=== PATIENT | female | born 1970 | race Caucasian/White ===

== ENCOUNTER 2022-02-13 08:21 | Observation (INO) | payer SELFPAY ==
[2022-02-13] VITALS (13 sets, daily range): BP systolic 110–140; BP diastolic 63–100; PULSE 61–87; RESP 14–20; TEMP 35.6–36.7; O2SAT 95–99; BMI 26.9; BMI 26.7
--- NOTE | 2022-02-13 08:42 | CT_ITS ---
STUDY: CT HEAD STROKE PROTOCOL W/O CONTRAST INJECTION REASON FOR EXAM: Female, 51 years old. Neuro deficit, acute, stroke suspected RADIATION DOSAGE (If Supplied By Facility): CTDIvol = ( 47.06 ) mGy, DLP = ( 37.39 ) mGycm TECHNIQUE: Transaxial CT imaging of the brain was performed without administration of intravenous contrast material. Individualized dose optimization techniques were used for this CT. COMPARISON: No relevant priors. FINDINGS: Normal soft tissue structures. Normal calvarium. Normal size ventricles and extra-axial spaces for the patient''s age. Normal white matter tracts of the cerebral hemispheres. Normal basal ganglia and thalami. Normal brainstem. Normal cerebellum. There is no intracranial hemorrhage. There are no findings of an acute ischemic infarction. Mild degree of mucosal thickening of the left maxillary sinus. ASPECT score: 10 CT/STROKE Brain/Head without Cont IMPRESSION: Normal unenhanced CT scan of the brain. N.B. : The above Results were Read Back by Sigifredo Solis MD to Selam Batista and understanding confirmed on 02/13/2022 09:17:28 (ET). Electronically Signed: Sigifredo Solis MD at 9:18 EDT ,
--- NOTE | 2022-02-13 08:42 | RAD_ITS ---
STUDY: X-RAY CHEST REASON FOR EXAM: Female, 51 years old. Neuro deficit, acute, stroke suspected TECHNIQUE: Single AP portable view of the chest. COMPARISON: None. FINDINGS: EKG electrodes are seen. The lungs are clear and expanded. There is no demonstrated pleural abnormality. Normal size heart. Normal mediastinum and adrián. Normal visualized pulmonary arteries. Normal visualized aortic arch and descending thoracic aorta. Normal visualized thoracic spine. Normal visualized ribs, clavicles, and shoulders. There is no demonstrated abnormality of the visualized soft tissue structures of the upper abdomen. RAD/Chest 1 View IMPRESSION: Normal x-ray examination of the chest. Electronically Signed: Sigifredo Solis MD at 10:02 EDT ,
--- NOTE | 2022-02-13 08:43 | CT_ITS ---
STUDY: CTA HEAD AND NECK WITH CONTRAST REASON FOR EXAM: Female, 51 years old. Neuro deficit, acute, stroke suspected RADIATION DOSAGE (If Supplied By Facility): CTDIvol = ( 18.19 ) mGy, DLP = ( 881.01 ) mGycm TECHNIQUE: CT angiography was performed with a multi-detector CT scanner. Data acquisition was obtained from the skull base through the vertex following intravenous administration of IV 100mL Isovue-370. MIP images were reconstructed from the axial data set. Post-processing of the angiographic images was performed, with multiplanar reformation and 3D reconstruction. Individualized dose optimization techniques were used for this CT. COMPARISON: No relevant priors. FINDINGS: Normal bilateral petrous carotid arteries. Normal right cavernous carotid artery with a normal supraclinoid bifurcation. Normal left cavernous carotid artery with a normal supraclinoid bifurcation. Normal right A1 segments of the anterior cerebral artery. Normal left A1 segments of the anterior cerebral artery. Normal intact anterior communicating artery (ACOM). Normal bilateral A2 segments of the anterior cerebral arteries. Normal right M1 and M2 segments of the middle cerebral arteries, with a normal M1 bifurcation. Normal left M1 and M2 segments of the middle cerebral arteries, with a normal M1 bifurcation. Normal right posterior communicating artery (PCOM). Normal left posterior communicating artery (PCOM). Normal bilateral vertebral arteries. Normal basilar artery with a normal basilar bifurcation. The visualized bilateral superior cerebellar (SCA) arteries are normal. Normal bilateral P1, P2 and visualized P3 segments of the posterior cerebral arteries. There is no demonstrated aneurysm of the [place]. There is no demonstrated abnormality of the visualized brain. Partial opacification of the left maxillary sinus. AORTIC ARCH: There is atherosclerotic calcific plaque formation of the aortic arch and great vessels arising from the aortic arch, without a hemodynamically significant stenosis. There is a normal origin of the brachiocephalic, left common carotid, and left subclavian arteries. RIGHT CAROTID ARTERIES: Normal right common carotid artery (CCA). Normal right common carotid bulb. Normal origin of the right internal carotid (ICA) artery without a hemodynamically significant stenosis. Normal visualized cervical portion of the right internal carotid artery. Normal origin of the right external carotid artery (ECA). LEFT CAROTID ARTERIES: Normal left common carotid artery (CCA). Normal left common carotid bulb. Normal origin of the left internal carotid (ICA) artery without a hemodynamically significant stenosis. Normal visualized cervical portion of the left internal carotid artery. Normal origin of the left external carotid artery (ECA). VERTEBRAL ARTERIES: There is enhancement within the bilateral vertebral arteries with a small left vertebral artery, and a dominant right vertebral artery. CT/STROKE CTA Head AND Neck W/Con IMPRESSION: Normal CTA Head and neck with contrast. N.B. : The above Results were Read Back by Sigifredo Solis MD to Selam Batista and understanding confirmed on 02/13/2022 09:14:51 (ET). Electronically Signed: Sigifredo Solis MD at 9:16 EDT ,
--- NOTE | 2022-02-13 08:43 | ED.VIS.STROK ---
HPI History of Present Illness Chief Complaint: Stroke Alert Detail of Chief Complaint: Right arm numbness and tingling and weakness Informant: patient Narrative Narrative: Patient presents the emergency department with right arm numbness and tingling and weakness. Patient states she woke up at 3 AM and thought maybe her arm had fallen asleep. Patient was in bed. She denied any compression of any of the nerves in her armpit. She woke up this morning and continued to experience numbness in her hand and could not really feel her fingers. She had a hard time picking things up and the arm felt weak. She denies any speech difficulty or vision changes. She is never had symptoms like this before. Patient also noticed a pain that radiates from her armpit down to her thumb at times. Prior similar symptoms: No PFSH PFSH Medical History no medical history Home Medications NK 02/13/22 [History Last Taken Unknown] Allergy/AdvReac Type Severity Reaction Status Date / Time azithromycin Allergy Anaphylaxis Verified 02/13/22 08:23 Family History no significant family his Surgical History no surgical history Social History Smoking Status: Current every day smoker tobacco type: cigarettes ROS ROS ED Constitutional Constitutional ED: Reports systems reviewed and no addt'l complaints, except as documented; Denies body ache(s), change in weight or chills Eyes Eyes: Denies acute decrease in peripheral vision, change in vision, double vision or loss of vision ENT ENT ED: Reports none; Denies ear pain, lip swelling, loss taste/smell, neck pain, otalgia or sore throat Cardiovascular Cardiovascular: Reports none; Denies abdominal pain, chest pain with activity, leg edema, lightheadedness, palpitations, rapid heart rate or syncope Respiratory/Chest Respiratory/Chest: Reports none; Denies change in mental status, dry cough, dyspnea, hemoptysis, shortness of breath at rest or shortness of breath with exertion Gastrointestinal Gastrointestinal: Reports none; Denies abdominal pain, change in stool character, diarrhea, hematemesis, hematochezia, melena, rectal bleeding or vomiting Genitourinary Genitourinary ED: Reports none; Denies abdominal discomfort, anuria, dysuria, genital pain or polyuria Musculoskeletal Musculoskeletal: Reports none; Denies arthralgias, back pain, difficulty walking, extremity pain, muscle weakness or myalgias Integumentary Reports none; Denies abscess or rash Neurologic Neurologic: Reports none, focal weakness, paresthesias and weakness; Denies abnormal gait, confusion, frequent falls, headache(s), loss of vision, numbness, radicular pain or vertigo Psychiatric Psychiatric: Reports systems reviewed and no addt'l complaints, except as documented and none; Denies behavioral changes, confusion, difficulty concentrating, hallucinations, suicidal ideation, tactile hallucinations or visual hallucinations Endocrine Endocrinology: Denies none, cold intolerance, excessive sweating, fatigue or heat intolerance Hematologic/Lymphatic Hematologic/Lymphatic: Reports none; Denies anemia, easy bleeding or easy bruising Allergic/Immunologic Allergic/Immunologic ED: Denies as per HPI, none, lip swelling, mouth swelling, throat swelling, tongue swelling or hives EXAM Physical Exam Const Vital Signs: 02/13/22 08:25 02/13/22 08:42 02/13/22 08:42 Temperature 96.1 F L Temperature Source Temporal Pulse Rate 72 72 Respiratory Rate 17 16 Blood Pressure 140/86 H 140/86 H Blood Pressure Mean 104 104 Pulse Ox 99 99 Oxygen Delivery Method Room Air Room Air Room Air 02/13/22 08:42 02/13/22 09:10 02/13/22 09:30 Temperature Temperature Source Pulse Rate 72 66 87 Respiratory Rate 16 16 16 Blood Pressure 140/86 H 137/63 H 139/91 H Blood Pressure Mean 104 87 107 Pulse Ox 99 99 96 Oxygen Delivery Method Room Air Room Air Room Air 02/13/22 10:00 Temperature Temperature Source Pulse Rate 61 Respiratory Rate 16 Blood Pressure 132/88 H Blood Pressure Mean 102 Pulse Ox 98 Oxygen Delivery Method Room Air Positive well nourished and well developed General Appearance ED: well developed and NAD HEENT Reports TM's clear and moist mucous membranes normocephalic and atraumatic; Negative for trauma or tenderness Tympanic Membrane ED: Yes TM's clear Eyes PERRL and EOMs intact bilaterally General Eye ED: Negative for pale conjunctiva or scleral icterus Neck no lymphadenopathy, supple and no JVD General: Negative for tenderness Chest Wall inspection of chest normal and palpation of chest normal Chest: Negative for tenderness Resp normal respiratory effort and clear to auscultation bilaterally Effort and Inspection: Negative for respiratory distress or pain with movement Auscultation: Negative for rhonchi, wheezes or diminished lung sounds Cardio regular rate, regular rhythm, S1 normal heart sound, S2 normal heart sound and no murmurs Peripheral Pulses: pulses 2+ throughout GI normal to inspection, nondistended, normoactive bowel sounds, soft to palpation, non-tender, non-distended and no masses Back/Spine no CVA tenderness and no thoracic nor lumbar tenderness Extremity normal to inspection General Extremety ED: Negative for edema General Extremity: Negative for edema Neuro oriented x3, CN's II-XII intact bilaterally, no sensory deficits noted and gait normal Neuro Narrative: Patient with no focal deficits noted. NIH stroke scale was a 1 for some decree sensation to the right arm. Sensorium / Orientation: awake, alert, oriented to person, oriented to place and oriented to time Motor Exam: strength 5/5 throughout and strength abnormal Psych mental status grossly normal Skin no rashes or lesions noted and no wounds MDM MDM MDM Narrative Medical decision making narrative: On her arrival patient had a stroke team called as she has had symptoms for less than 24 hours. Patient is out of the thrombolytic window as symptoms almost 6 hours. Patient was evaluated by stroke neurologist and no tPA recommended and I am in agreement with this. Lab work-up was unremarkable. Patient CT of the brain and CTA of head and neck were all unremarkable. Patient initially stated that her paresthesias resolved when speaking with the stroke neurologist but then intermittently she would have symptoms that would recur in the right arm. Case discussed with hospitalist will evaluate patient for admission for MRI and completion of stroke work-up. In the differential would be a peripheral neuropathy as well. Lab Data Attestation: I reviewed the patient's lab results. Labs: Laboratory Results - last 24 hr 02/13/22 02/13/22 02/13/22 08:44 09:01 09:01 WBC 7.4 RBC 4.30 Hgb 12.3 Hct 37.1 MCV 86.3 MCH 28.6 MCHC 33.2 RDW Std Deviation 43.8 RDW Coeff of Milla 13.8 Plt Count 322 MPV 9.7 Immature Gran % (Auto) 0.400 Neut % (Auto) 55.7 Lymph % (Auto) 27.2 [place] % (Auto) 8.9 Eos % (Auto) 6.7 H Baso % (Auto) 1.1 H Absolute Neuts (auto) 4.1 Absolute Lymphs (auto) 2.02 Nucleated RBC % 0 PT 12.5 INR 1.0 APTT 26.1 Sodium Potassium Chloride Carbon Dioxide Anion Gap BUN Creatinine Estim Creat Clear Calc Est GFR (MDRD) Af Amer Est GFR (MDRD) Non-Af BUN/Creatinine Ratio Glucose Calcium Troponin I High Sens POC Glucose 114 H 02/13/22 09:01 WBC RBC Hgb Hct MCV MCH MCHC RDW Std Deviation RDW Coeff of Milla Plt Count MPV Immature Gran % (Auto) Neut % (Auto) Lymph % (Auto) [place] % (Auto) Eos % (Auto) Baso % (Auto) Absolute Neuts (auto) Absolute Lymphs (auto) Nucleated RBC % PT INR APTT Sodium 141 Potassium 3.5 Chloride 113 H Carbon Dioxide 24.0 Anion Gap 4 L BUN 17 Creatinine 0.72 Estim Creat Clear Calc 86.54 Est GFR (MDRD) Af Amer 110 Est GFR (MDRD) Non-Af 91 BUN/Creatinine Ratio 23.7 H Glucose 91 Calcium 8.9 Troponin I High Sens 5 POC Glucose Radiography Diagnostic Testing: Clinical Impression(s) from Imaging Studies Brain CT 02/13/22 08:42 IMPRESSION: Normal unenhanced CT scan of the brain. N.B. : The above Results were Read Back by Sigifredo Solis MD to Selam Batista and understanding confirmed on 02/13/2022 09:17:28 (ET). Electronically Signed: Sigifredo Solis MD at 9:18 EDT , ADDENDUM: 02/13/2225 IMPRESSION: Normal unenhanced CT scan of the brain. N.B. : The above Results were Read Back by Sigifredo Solis MD to Selam Batista and understanding confirmed on 02/13/2022 09:17:28 (ET). Electronically Signed: Sigifredo Solis MD at 9:18 EDT , Chest X-Ray 02/13/22 08:42 IMPRESSION: Normal x-ray examination of the chest. Electronically Signed: Sigifredo Solis MD at 10:02 EDT , Head/Neck CTA 02/13/22 08:43 IMPRESSION: Normal CTA Head and neck with contrast. N.B. : The above Results were Read Back by Sigifredo Solis MD to Selam Batista and understanding confirmed on 02/13/2022 09:14:51 (ET). Electronically Signed: Sigifredo Solis MD at 9:16 EDT , ADDENDUM: 02/13/22 0923 IMPRESSION: Normal CTA Head and neck with contrast. N.B. : The above Results were Read Back by Sigifredo Solis MD to Selam Batista and understanding confirmed on 02/13/2022 09:14:51 (ET). Electronically Signed: Sigifredo Solis MD at 9:16 EDT , EKG Initial EKG: Attestation: I personally reviewed and interpreted this EKG as follows: Comments: Sinus rhythm with a ventricular rate of 59 bpm with old septal infarct Discharge Plan Triage Chief Complaint: Stroke Alert Other Complaint: Numb/Ting ED Provider: Selam Batista Dx/Rx/DC Orders Clinical Impression: Arm paresthesia, right, Brain TIA Prescriptions: No Action NK Primary Care Provider: Care Physician,No Primary Referrals: Care Physician,No Primary [Primary Care Provider] - Disposition Disposition: Acute Care [facility]
[2022-02-13 09:05] LABS: Bedside Glucose 114 mg/dL (74-106)
[2022-02-13 09:12] LABS: Absolute Lymphocyte Count 2.02 X10^3/uL (0.83-4.51); Absolute Neutrophil Count 4.1 X10^3/uL (2.0-7.7); Basophil# 0.08 X10^3/uL; Basophil% 1.1 % (0-1); Eosinophils% 6.7 % (0-5); Hematocrit 37.1 % (37-47); Hemoglobin 12.3 g/dL (12.0-15.0); Lymphocyte # 2.02 X10^3/ul (0.83-4.51); Lymphocyte % 27.2 % (19-41); Mean Corp Hgb Conc 33.2 g/dL (32-36); Mean Corpuscular Hgb 28.6 pg (27.0-32.0); Mean Corpuscular Volume 86.3 fL (81-99); Mean Platelet Vol. 9.7 fl (6.2-12.0); Monocyte# 0.66 X10^3/uL; Monocyte% 8.9 % (0-10); NRBC Flagged by Analyzer 0 % (0-5); Neutrophil # 4.13 X10^3/uL (2.7-7.7); Neutrophil % 55.7 % (47-70); Platelet Count 322 K/mm3 (150-450); RBC Distribution Width CV 13.8 % (11.6-14.6); RBC Distribution Width SD 43.8 fl (35.1-43.9); White Blood Count 7.4 K/mm3 (4.4-11.0)
[2022-02-13 09:26] LABS: Anion Gap 4 (5-15); BUN 17 mg/dL (7-18); BUN/Creat Ratio 23.7 RATIO (10-20); Calcium,Total 8.9 mg/dL (8.5-10.1); Chloride 113 mmol/L (98-107); Creatinine, Serum 0.72 mg/dL (0.55-1.02); EST Glomerular Filtration Rate 91 mL/min (>60); Est Glom Filt Rate - Afr Amer 110 mL/min (>60); Estimated Creatinine Clearance 86.54 ml/min; Glucose 91 mg/dL (74-106); Potassium 3.5 mmol/L (3.5-5.1); Sodium Level 141 mmol/L (136-145); Troponin-I HS 5 pg/mL (3.0-54.0)
[2022-02-13 09:27] LABS: Prothrombin Time (Protime)PT. 12.5 SECONDS (11.7-14.9)
[2022-02-13 09:28] LABS: Partial Thromboplast Time 26.1 Seconds (24.1-36.2)
--- NOTE | 2022-02-13 11:08 | MRI_ITS ---
HISTORY: stroke. TECHNIQUE: Multiplanar and multisequence MR images of the brain were obtained without contrast. 284 images. COMPARISON: CT same day. FINDINGS: BRAIN PARENCHYMA: No significant signal abnormality in the brain parenchyma. No abnormal focus of restricted diffusion. No acute intracranial hemorrhage identified. CSF SPACES: Cerebral ventricles, cortical sulci, and other extra-axial CSF spaces within normal limits in size. No significant midline shift or other mass effect.No extra-axial fluid collection. VASCULAR SYSTEM: Major intracranial flow voids are maintained. PARANASAL SINUSES AND MASTOID AIR CELLS: Mild left maxillary sinus mucosal thickening. ORBITS: Symmetric contents. MRI/Brain without Contrast IMPRESSION: No evidence for acute infarct, acute intracranial hemorrhage, or other significant signal abnormality in the brain. Electronically Signed: Savanah Cox MD at 14:21 EDT ,
--- NOTE | 2022-02-13 11:17 | HP.PCM.HOS_ITS ---
[facility] - General General Date of Admission: 02/13/22 Date of Service: 02/13/22 Chief Complaint: Right arm numbness and tingling HPI Narrative ALBERTA PETERS, is a 51 F who presents to [facility] 02/13/2022 with complaints of right arm tingling. She reports she woke up at 3 AM with tingling in her entire arm and thought it was just asleep. She then went back to bed and woke up at 7 and noted that she still had tingling in her arm. She presented to the emergency department and stroke work-up was pursued. Symptoms had been waxing and waning in ED but were not present during my evaluation. CTA head and neck was unremarkable and neurology recommended further work-up. Ms. Wilson reports she continues to have intermittent tingling from her armpit to her hand, primarily into her thumb but at times will go up the radial aspect of her forearm. She occasionally will have a dull ache that seems to radiate from her armpit and go to her right thumb. This happens 2 times an hour and will last 10 minutes at a time. Does not note residual symptoms or weakness in between but noted when she woke up with the full arm numbness she had difficulty holding her coffee cup. She denies any falls or injuries, no neck pain, denies any other numbness or tingling, no weakness, denies any headaches or changes in vision. Denies any thing like this happening in the past. Denies any chest pain, shortness of breath, nausea vomiting, fever or chills. Has a chronic cough that she attributes to smoking without change. No other complaints at this time. [facility] Medical History Anxiety COPD (chronic obstructive pulmonary disease) Smoker Medical History no medical history Home Medications NK 02/13/22 [History Last Taken Unknown] Allergy/AdvReac Type Severity Reaction Status Date / Time azithromycin Allergy Anaphylaxis Verified 02/13/22 08:23 Family History Sister Diabetes Hypertension Father Diabetes Hypertension Mother Hypertension Family History no significant family his Surgical History H/O colectomy H/O tubal ligation History of hysterectomy Surgical History no surgical history Social History housing: other details: Currently staying at the [facility] Smoking Status: Current every day smoker tobacco type: cigarettes ROS ROS Narrative General: denies fever, chills, night sweats, weight loss, anorexia HEENT: denies headache, sinus congestion, or drainage, dysphagia Resp: slight chronic cough, denies SOB Cardiac: Denies chest pain, palpitations GI: Denies abdominal pain, nausea, and vomiting : Denies dysuria, urgency, frequency, hematuria Extremity: Denies swelling MSK: Denies current joint pain or tenderness, denies neck pain Neuro: endorses intermittent tingling in R arm, primarily into the thumb and below the eblow with occasional shooting dullness from armpit down Heme: Denies any bleeding Skin: Denies rashes Psychiatric: Does endorse anxiety Gastrointestinal Gastrointestinal: Denies other Genitourinary Genitourinary: Denies other Vital Signs Vital Signs Vital Signs: 02/13/22 08:25 02/13/22 08:42 02/13/22 08:42 Temperature 96.1 F L Temperature Source Temporal Pulse Rate 72 72 Respiratory Rate 17 16 Blood Pressure 140/86 H 140/86 H Blood Pressure Mean 104 104 Pulse Ox 99 99 Oxygen Delivery Method Room Air Room Air Room Air 02/13/22 08:42 02/13/22 09:10 02/13/22 09:30 Temperature Temperature Source Pulse Rate 72 66 87 Respiratory Rate 16 16 16 Blood Pressure 140/86 H 137/63 H 139/91 H Blood Pressure Mean 104 87 107 Pulse Ox 99 99 96 Oxygen Delivery Method Room Air Room Air Room Air 02/13/22 10:00 02/13/22 11:00 Temperature 98.0 F Temperature Source Oral Pulse Rate 61 73 Respiratory Rate 16 16 Blood Pressure 132/88 H 127/83 H Blood Pressure Mean 102 97 Pulse Ox 98 97 Oxygen Delivery Method Room Air Room Air Weight Weight: 75.8 kg Body Mass Index (BMI) 26.9 Physical Exam Narrative General: Cooperative HEENT: Atraumatic, normocephalic Eyes: Anicteric, normal conjunctiva, PERRL, EOMI Neck: Supple Respiratory: Scattered wheezes, transmitted upper airway sounds, coughs several times Cardiovascular: RRR GI: Soft, non tender, non distended : no suprapubic tenderness Extremities: No edema Musculoskeletal: No muscle wasting, 5/5 strength in upper and lower extremities, 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, no neck pain, no armpit tenderness Neuro: Awake, alert, CN II-XII intact, no weakness, denied difference in sensation during exam, finger to nose without significant difficulty, able to alternate hands quickly back and forth without difficulty Skin: No rashes, did have several small red papules on arms Psych: Cooperative, did appear anxious Eyes Eyes Narrative: EOM grossly intact, anicteric Extremity Extremity Narrative: No edema appreciated Neuro Neuro Narrative: No overt focal deficits appreciated Psych Psych Narrative: Cooperative Results Lab / Micro Data Result Diagrams: 02/13/22 09:01 02/13/22 09:01 Labs: Laboratory Results - last 24 hr 02/13/22 08:44: POC Glucose 114 H 02/13/22 09:01: WBC 7.4, RBC 4.30, Hgb 12.3, Hct 37.1, MCV 86.3, MCH 28.6, MCHC 33.2, RDW Std Deviation 43.8, RDW Coeff of Milla 13.8, Plt Count 322, MPV 9.7, Immature Gran % (Auto) 0.400, Neut % (Auto) 55.7, Lymph % (Auto) 27.2, [place] % (Auto) 8.9, Eos % (Auto) 6.7 H, Baso % (Auto) 1.1 H, Absolute Neuts (auto) 4.1, Absolute Lymphs (auto) 2.02, Nucleated RBC % 0 02/13/22 09:01: PT 12.5, INR 1.0, APTT 26.1 02/13/22 09:01: Sodium 141, Potassium 3.5, Chloride 113 H, Carbon Dioxide 24.0, Anion Gap 4 L, BUN 17, Creatinine 0.72, Estim Creat Clear Calc 86.54, Est GFR (MDRD) Af Amer 110, Est GFR (MDRD) Non-Af 91, BUN/Creatinine Ratio 23.7 H, Glucose 91, Calcium 8.9, Troponin I High Sens [address] 02/13/22 08:42 IMPRESSION: Normal unenhanced CT scan of the brain. N.B. : The above Results were Read Back by Sigifredo Solis MD to Selam Batista and understanding confirmed on 02/13/2022 09:17:28 (ET). Electronically Signed: Sigifredo Solis MD at 9:18 EDT , ADDENDUM: 02/13/22 0925 IMPRESSION: Normal unenhanced CT scan of the brain. N.B. : The above Results were Read Back by Sigifredo Solis MD to Selam Batista and understanding confirmed on 02/13/2022 09:17:28 (ET). Electronically Signed: Sigifredo Solis MD at 9:18 EDT , Chest X-Ray 02/13/22 08:42 IMPRESSION: Normal x-ray examination of the chest. Electronically Signed: Sigifredo Solis MD at 10:02 EDT , Head/Neck CTA 02/13/22 08:43 IMPRESSION: Normal CTA Head and neck with contrast. N.B. : The above Results were Read Back by Sigifredo Solis MD to Selam Batista and understanding confirmed on 02/13/2022 09:14:51 (ET). Electronically Signed: Sigifredo Solis MD at 9:16 EDT , ADDENDUM: 02/13/22 0923 IMPRESSION: Normal CTA Head and neck with contrast. N.B. : The above Results were Read Back by Sigifredo Solis MD to Selam Batista and understanding confirmed on 02/13/2022 09:14:51 (ET). Electronically Signed: Sigifredo Solis MD at 9:16 EDT , Assessment & Plan Assessment/Plan (1) Brain TIA: PLAN: Plan 1. Transient Ischemic Attack Concern for TIA given waxing and waning focal symptoms NIH at time of eval 0 ABCD2 score 4, pt moderate risk warranting admission and in hospital w/u Asa, plavix, statin CTA head and neck on arrival demonstrated enhancement within the bilateral vertebral arteries with a small left vertebral artery, and a dominant right vertebral artery with no report of hemorrhage or infarction Admit to tele MRI pending EKG Echo ordered Labs reviewed POC glucose 114 Ortherwise unremarkable Will obtain lipid panel and TSH and Utox OT eval Pt passed swallow screen- okay for diet 2. 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 Poor social situation Z60.9 Ms. Wilson presently staying at the [facility], was previously homeless x1 month Did have sister present for support Denied substance use during our interview, given current location may need to attempt further discussion Jess Ramos MD Time spent >35 minutes Charges/Coding Visit Charges OBSV E&M: 90905 Initial observation care L1
[2022-02-13] MEDS: Clopidogrel Bisulfate 75 MG Tablet PO (13:45)
[2022-02-13] MEDS: Aspirin 81 MG TAB.CHEW PO (13:45)
[2022-02-13 14:41] LABS: Amphetamine Urine VISTA POSITIVE (<1000 ng/mL); Barbiturate Urine VISTA NEGATIVE (< 200 ng/mL); Benzodiazepine Urine VISTA NEGATIVE (< 200 ng/mL); Cocaine Urine VISTA NEGATIVE (< 300 ng/mL); Ecstacy Urine VISTA NEGATIVE (< 500 ng/mL); Methadone Urine VISTA NEGATIVE (< 300 ng/mL); PCP Urine VISTA NEGATIVE (< 25 ng/mL); THC Urine VISTA POSITIVE (< 50 ng/mL); Vista UDS pH Range 7
--- NOTE | 2022-02-13 15:49 | MRI_ITS ---
STUDY: MRI CERVICAL SPINE WITHOUT CONTRAST REASON FOR EXAM: Female, 51 years old. arm numbness and tingling ?neck pathology TECHNIQUE: Standardized fat and water weighted pulse sequences were obtained in the sagittal and axial planes. COMPARISON: None FINDINGS: Normal foramen magnum and brainstem-cervical cord junction. Normal craniovertebral junction. Normal anterior atlantoaxial articulation. Normal odontoid process. Normal cervical lordosis. Normal vertebral bodies and posterior osseous elements. C2-3: Normal endplates. Normal disc height, signal and morphology. Normal central canal and intervertebral neural foramina. C3-4: Normal endplates. Normal disc height, signal and minimal bulging of the disc and small left posterolateral/foraminal disc/osteophyte protrusion.. Normal central canal. Moderate left neuroforaminal stenosis secondary to disc and bony hypertrophy C4-5: Normal endplates. Normal disc height, signal and minimal bulging disc osteophyte complex.. Normal central canal. Moderate bilateral neuroforaminal stenosis secondary to disc and bony hypertrophy. C5-6: Narrowed disc space and minor bulging disc osteophyte complex. Normal central canal. Severe bilateral neuroforaminal stenosis secondary to disc and bony hypertrophy.. C6-7: Narrowed disc space and minor osteophytic ridging with small right foraminal disc/osteophyte protrusion. Normal central canal. Severe left neuroforaminal stenosis and moderate narrowing on the right secondary to disc and bony hypertrophy C7-T1: Normal endplates. Normal disc height, signal and small right posterolateral disc protrusion.. Normal central canal and intervertebral neural foramina. Normal cervical cord. Normal visualized soft tissue structures. MRI/Spine Cervical (Routine) IMPRESSION: No evidence for acute fracture or other significant bony pathology. Moderate spondylosis and multilevel spinal stenosis secondary to disc disease and bony hypertrophy. Findings as above Electronically Signed: Vinay Sultana MD at 20:45 EDT Reading Location ID and State: [address] [place] [address] , Service support ,
--- NOTE | 2022-02-13 19:04 | MRI_ITS ---
STUDY: MRI THORACIC SPINE WITHOUT CONTRAST REASON FOR EXAM: Female, 51 years old. Numbness and tingling in R arm, ?spinal pathology TECHNIQUE: Standardized fat and water weighted pulse sequences were obtained in the sagittal and axial planes. COMPARISON: None. FINDINGS: Normal kyphosis of the thoracic spine. There is no substantial scoliosis. No evidence for acute fracture or subluxation. No intramedullary bone marrow edema or other lesions. Disc space heights are well-maintained. There is multilevel disc degeneration. There is tiny right paracentral disc protrusion at T3-4 mildly narrowing the spinal canal Minor bulging of the disc at T2-3. Normal visualized thoracic cord. Normal conus medullaris that terminates at T12-L1 The soft tissue structures are unremarkable. MRI/Spine Thoracic (Routine) IMPRESSION: No evidence for acute fracture or other significant bony pathology. Mild bulging of the disc at T2-3 and small right paracentral disc protrusion through T3-4 No evidence for spinal stenosis or cord compression Electronically Signed: Vinay Sultana MD at 20:38 EDT ,
[2022-02-13] MEDS: Atorvastatin Calcium 80 MG Tablet PO (20:06)
[2022-02-13] MEDS: Famotidine 20 MG Tablet PO (20:07)
[2022-02-14 02:22] VITALS: BMI 26.7
[2022-02-14 03:00] VITALS: PULSE 59
[2022-02-14 03:06] VITALS: BP 139/89; PULSE 66; RESP 16; TEMP 36.9; O2SAT 99
[2022-02-14 06:36] LABS: Absolute Lymphocyte Count 2.08 X10^3/uL (0.83-4.51); Absolute Neutrophil Count 4.1 X10^3/uL (2.0-7.7); Basophil# 0.05 X10^3/uL; Basophil% 0.7 % (0-1); Eosinophils% 5.5 % (0-5); Hematocrit 37.7 % (37-47); Hemoglobin 12.6 g/dL (12.0-15.0); Lymphocyte # 2.08 X10^3/ul (0.83-4.51); Lymphocyte % 28.7 % (19-41); Mean Corp Hgb Conc 33.4 g/dL (32-36); Mean Corpuscular Hgb 29.2 pg (27.0-32.0); Mean Corpuscular Volume 87.5 fL (81-99); Mean Platelet Vol. 9.4 fl (6.2-12.0); Monocyte# 0.59 X10^3/uL; Monocyte% 8.1 % (0-10); NRBC Flagged by Analyzer 0 % (0-5); Neutrophil # 4.12 X10^3/uL (2.7-7.7); Neutrophil % 56.7 % (47-70); Platelet Count 316 K/mm3 (150-450); RBC Distribution Width CV 13.9 % (11.6-14.6); RBC Distribution Width SD 45.1 fl (35.1-43.9); Red Blood Count 4.31 M/mm3 (4.2-5.4); White Blood Count 7.3 K/mm3 (4.4-11.0)
[2022-02-14 06:56] VITALS: O2SAT 98
[2022-02-14 07:00] VITALS: PULSE 63
[2022-02-14 07:17] LABS: ALB/GLOB Ratio 0.9 RATIO (0.9-2.4); AST(SGOT) 16 U/L (15-37); Alanine Aminotransfer ALT/SGPT 19 U/L (13-56); Albumin, Serum 3.3 g/dL (3.2-5.0); Alkaline Phosphatase 50 U/L (45-117); Anion Gap 6 (5-15); BUN 15 mg/dL (7-18); BUN/Creat Ratio 19.8 RATIO (10-20); Calcium,Total 8.6 mg/dL (8.5-10.1); Chloride 111 mmol/L (98-107); Cholesterol 152 mg/dL (200); Creatinine, Serum 0.76 mg/dL (0.55-1.02); EST Glomerular Filtration Rate 86 mL/min (>60); Est Glom Filt Rate - Afr Amer 103 mL/min (>60); Estimated Creatinine Clearance 81.98 ml/min; Globulin 3.6 g/dL (2.2-4.2); Glucose 94 mg/dL (74-106); High Density Lipoprotein 49 mg/dL; Potassium 3.5 mmol/L (3.5-5.1); Protein, Total 6.9 g/dL (6.4-8.2); Sodium Level 141 mmol/L (136-145); Thyroid Stim Hormone (TSH) 2.03 uIU/mL (0.358-3.74); Triglycerides 81 mg/dL; Very Low Density Lipoprotein 16 mg/dL (5-40)
[2022-02-14 09:07] VITALS: BP 135/81; PULSE 62; RESP 16; TEMP 36.8; O2SAT 99
[2022-02-14] MEDS: FLU VACC QS2022-23(6MOS UP)/PF 60 MCG/0.5 ML SYRINGE IM (09:16)
[2022-02-14] MEDS: Aspirin 81 MG TAB.CHEW PO (09:16)
[2022-02-14] MEDS: Famotidine 20 MG Tablet PO (09:18)
[2022-02-14] MEDS: Enoxaparin 40 MG/0.4 ML Syringe SC (09:18)
[2022-02-14] MEDS: Clopidogrel Bisulfate 75 MG Tablet PO (09:18)
--- NOTE | 2022-02-14 11:43 | DS.PCM_ITS ---
Providers Date of Admission: 02/13/22 Date of Discharge: 02/14/22 Primary Care Physician: No Primary Care Phys Reason For Visit: TIA Diagnosis Discharge Diagnosis (1) Arm paresthesia, right: Status: Acute Code(s): R20.2 - Paresthesia of skin Medications at Discharge Home Medications gabapentin 100 mg capsule 200 mg PO TID PRN Right arm discomfort #60 caps 02/14/22 Hospital Course Operations None Procedures None and - (MRI brain/cervical/thoracic spine/CTA head and neck/CT brain) Summary of Care Provided Minutes Spent on Discharge: 28 Hospital Course: Ms. Claudio is a 51-year-old white female who presented to the emergency department at [facility] on 02/13/2022 with right arm numbness and tingling. She reported that she woke up at 3 AM with tingling in her entire arm and thought it was just because the way she slept on it and then she went back to bed and woke up at 7 and noted that she still had tingling in her arm. She presented to the emergency department because of the symptoms. Stroke work- up was pursued in the emergency department. Symptoms were waxing and waning in the emergency department but resolved by the time she was evaluated by the hospitalist that admitted the patient. CT of her brain was negative CTA of the head and neck was unremarkable and the stroke neurology team from [facility] recommended further work-up. She reported that she has had intermittent tingling from her armpit to her hand predominantly at the thumb but sometimes will go into the radial aspect of her forearm. She also reported a dull ache that seem to radiate from her armpit to her right thumb as well. 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 She is had no trauma. Admitting vital signs were overall unremarkable. Lab work on admission was unremarkable. Tox screen was performed and was positive for amphetamines and cannabinoids. An MRI of her brain was performed to rule out stroke and this sh owed no evidence of any acute infarct, acute intracranial hemorrhage or other significant abnormal finding in the brain. It was thought maybe her symptoms were musculoskeletal and a cervical spine MRI and thoracic spine MRI were performed. Her cervical spine MRI showed no evidence of acute fracture or bony pathology but did show moderate spondylosis and multilevel spinal stenosis secondary to disc disease and bony hypertrophy most notably at C4-C5, C5-C6, and C6-C7. Much of this pathology affected the right side of her cervical spine. At the time of my evaluation she was having some light paresthesias in that arm but was able to move and have them decreased. She had no notable strength deficits and her reflexes were normal in the right upper extremity. She was started on gabapentin 200 mg 3 times daily as needed for her nerve symptoms and it was recommended that she follow-up with spine surgery, Dr. Martin, after discharge and his information was given to for follow-up appointment. We did discuss smoking cessation as this does complicate any disc disease she does have and would potentially impair healing if surgical intervention was required. She voiced understanding. She was discharged home in stable condition on 02/14/2022. Prescription for gabapentin was faxed to the pharmacy. Discharge diagnoses: Right upper extremity paresthesias/numbness secondary to cervical spine radiculopathy Cervical spine stenosis Tobacco abuse Homelessness Methamphetamine use Marijuana use Weight / BMI Weight Weight: 75.2 kg Body Mass Index (BMI) 26.7 ABG / Lab / Microbiology Data Result Diagrams: 02/14/22 06:10 02/14/22 06:10 Laboratory: Laboratory Results - last 24 hr 02/13/22 14:15: Urine Opiates Screen NEGATIVE, Urine Methadone Screen NEGATIVE, Ur Barbiturates Screen NEGATIVE, Ur Phencyclidine Scrn NEGATIVE, Ur Amphetamines Screen POSITIVE H, MDMA (Ecstasy) Screen NEGATIVE, U Benzodiazepines Scrn NEGATIVE, Urine Cocaine Screen NEGATIVE, U Cannabinoids Screen POSITIVE H, Ur Drug Screen Comment 02/14/22 06:10: WBC 7.3, RBC 4.31, Hgb 12.6, Hct 37.7, MCV 87.5, MCH 29.2, MCHC 33.4, RDW Std Deviation 45.1 H, RDW Coeff of Milla 13.9, Plt Count 316, MPV 9.4, Immature Gran % (Auto) 0.300, Neut % (Auto) 56.7, Lymph % (Auto) 28.7, Calloway % (Auto) 8.1, Eos % (Auto) 5.5 H, Baso % (Auto) 0.7, Absolute Neuts (auto) 4.1, Absolute Lymphs (auto) 2.08, Nucleated RBC % 0 02/14/22 06:10: Sodium 141, Potassium 3.5, Chloride 111 H, Carbon Dioxide 24.0, Anion Gap 6, BUN 15, Creatinine 0.76, Estim Creat Clear Calc 81.98, Est GFR (MDRD) Af Amer 103, Est GFR (MDRD) Non-Af 86, BUN/Creatinine Ratio 19.8, Glucose 94, Calcium 8.6, Total Bilirubin 0.40, AST 16, ALT 19, Alkaline Phosphatase 50, Total Protein 6.9, Albumin 3.3, Globulin 3.6, Albumin/Globulin Ratio 0.9, Triglycerides 81, Cholesterol 152, LDL Cholesterol 87, VLDL Cholesterol 16, HDL Cholesterol 49, TSH 2.03 Radiography Diagnostic Testing: Radiology Impression Brain MRI 02/13/22 11:08 IMPRESSION: No evidence for acute infarct, acute intracranial hemorrhage, or other significant signal abnormality in the brain. Electronically Signed: Savanah Cox MD at 14:21 EDT , Cervical Spine MRI 02/13/22 15:49 IMPRESSION: No evidence for acute fracture or other significant bony pathology. Moderate spondylosis and multilevel spinal stenosis secondary to disc disease and bony hypertrophy. Findings as above Electronically Signed: Vinay Sultana MD at 20:45 EDT , Thoracic Spine MRI 02/13/22 19:04 IMPRESSION: No evidence for acute fracture or other significant bony pathology. Mild bulging of the disc at T2-3 and small right paracentral disc protrusion through T3-4 No evidence for spinal stenosis or cord compression Electronically Signed: Vinay Sultana MD at 20:38 EDT , Meaningful Use Info Meaningful Use Diagnoses (Choose all that apply): None applicable Discharge Plan Admission Admit Date/Time: 02/13/22 11:02 Primary Reason for Your Visit: Right arm tingling/weakness Attending Provider: Mariama Whyte Primary Care Provider: Care Physician,No Primary Consulting Providers: Jess Raoms Discharge Orders/Prescriptions Prescriptions: New gabapentin 100 mg capsule 200 mg PO TID PRN (Reason: Right arm discomfort) Qty: 60 0RF Referrals / Follow Up: Rylan Martin DO [Med Staff - Active Staff] - Within 2 Weeks (Call and make an appointment later today or Thursday) Care Physician,No Primary [Primary Care Provider] - Disposition Disposition (needs filled in before D/C Order can be placed): Home, Self Care Charges/Coding Visit Charges Inpatient E&M: 83306 Disch Hosp
--- NOTE | 2022-02-14 12:14 | PHA.DC.MC ---
Pharmacy Service has performed discharge medication reconciliation and counseling for this patient. 1. GABAPENTIN 200MG PO TID PRN RIGHT ARM DISCOMFORT The patient's discharge medication list was reviewed for discrepancies and discrepancies were resolved. Home Medications gabapentin 100 mg capsule 200 mg PO TID PRN Right arm discomfort #60 caps 02/14/22 The patient was counseled on the following discharge medications and changes in medications for homegoing were reviewed. The Reason for Use, instructions for use, and potential side effects were reviewed for all new medications. The patient's questions regarding all of their medications were answered. The patient was able to verbally demonstrate an understanding of their discharge medications.
[2022-02-14 12:44] VITALS: BMI 26.7
--- NOTE | 2022-02-14 12:57 | CASEMGMT ---
SW met with patient. Introduced self and role at [facility]. Patient does not have insurance and she is currently staying at [facility]. SW asked patient if she has applied for Medicaid. Patient states she has already been denied by [place]. Patient said they told her that her case in [place] has to be canceled and they need a letter from [place] indicating her case has been canceled. Patient said she cannot do that. SW asked if she has tried calling [place]. Patient said she just got a phone. SW asked if anyone at [facility] is helping her with this and she said they told her they would help her. SW told patient that the physician only prescribed one medication. Patient said she has some money, but not much. SW told her SW will let her know the cost. Patient was also interested in some community resources. Patient's one prescription is $13. SW let patient know and she said she can afford this. SW also provided patient with some community resources including Kourtney Ramos, [employer], and [employer] card. Kathia HERRERA
[2022-02-14 14:00] VITALS: BP 147/78; PULSE 79; RESP 16; TEMP 36.1; O2SAT 98
--- NOTE | 2022-02-14 15:21 | NURSING ---
Charting reviewed with Armani Bueno RN
== END 2022-02-14 14:16 | disposition home or self-care (01) ==
LOC: ED 10:32 → PCU 11:31
PROVIDERS: Admitting Provider Internal Medicine; Emergency Provider Emergency Medicine; Visit Provider Internal Medicine
DX: M48.02 Spinal stenosis, cervical region (principal); J44.9 Chronic obstructive pulmonary disease, unspecified; Z59.00 Homelessness unspecified; F12.90 Cannabis use, unspecified, uncomplicated; F15.90 Other stimulant use, unspecified, uncomplicated; F17.210 Nicotine dependence, cigarettes, uncomplicated; M47.22 Other spondylosis with radiculopathy, cervical region; Z60.9 Problem related to social environment, unspecified; Z23 Encounter for immunization; R00.1 Bradycardia, unspecified; R94.31 Abnormal electrocardiogram [ECG] [EKG]
CPT/HCPCS: 36415; 70450; 70496; 70498; 70551; 71045; 72141; 72146; 80048; 80053; 80061; 80307; 82962; 84443; 84484; 85025; 85610; 85730; 93005; 94762; 96372; 99218; 99285; Q9967; 90686; G0378